=== PATIENT | male | born 1960 | race Caucasian/White ===

== ENCOUNTER 2016-06-21 09:11 | Emergency (ER) | payer BC, OTHER ==
[~2016-06-21] VITALS: Ht 160 cm; Wt 78.0 kg
[~2016-06-21 09:11] MED LIST: AZIT250T94 PO; HYDR-906 PO
[2016-06-21 09:19] VITALS: Ht 160 cm; Wt 78.0 kg
[2016-06-21] MEDS ORDERED: KETOROLAC 30 MG INJ IM STA (11:54)
--- NOTE | 2016-06-21 12:17 | ERD ---
ER Documentation Chief Complaint Date/Time DATE: 06/21/16 TIME: 12:13 Chief Complaint RIGHT SHOULDER/NECK PAIN X 5 DAYS HPI This is a 56-year-old male who presents the emergency department today complaining of right-sided chest pain that goes up towards his neck and is worse with movement of his right shoulder. Patient states that he feels pressure in his right arm. States he has tried Naprosyn with no improvement in pain. 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 Denies any neck pain. Denies any fevers or chills or cough ROS All systems reviewed and are negative except as per history of present illness. Medications Home Meds Active Scripts Naproxen* (Naprosyn*) 500 Mg Tablet, 500 MG PO BID Y for PAIN AND/OR INFLAMMATION, #30 TAB Prov:HEATHER YATES PA-C 06/21/16 Hydrocodone/Acetaminophen (Slaughter 5-325 Tablet) 1 Each Tablet, 1 TAB PO Q6H Y for PAIN, #15 TAB Prov:HEATHER YATES PA-C 06/21/16 Hydrocodone/Acetaminophen (Slaughter 5-325 Tablet) 1 Each Tablet, 1 TAB PO Q6H Y for PAIN, #10 TAB Prov:NESTOR CORREIA PA-C 02/04/16 Azithromycin* (Zithromax*) 250 Mg Tablet, 250 MG PO .ZPACK DIRECTED, #6 TAB TAKE 500 MG (2 TABS) THE FIRST DAY THEN 250 MG (1 TAB) DAYS 2-5 Prov:NESTOR CORREIA PA-C 02/04/16 Allergies Allergies: Coded Allergies: No Known Allergy (Verified Allergy, Mild, NKA NONE, 12/14/08) PMhx/Soc Medical and Surgical Hx: pt denies Medical Hx, pt denies Surgical Hx Hx Alcohol Use: No Hx Substance Use: No Hx Tobacco Use: No Smoking Status: Never smoker Physical Exam Vitals Vital Signs Date Time Temp Pulse Resp B/P Pulse Ox O2 Delivery O2 Flow Rate FiO2 06/21/16 09:19 98.1 75 18 158/82 99 Physical Exam Const: No acute distress Head: Atraumatic Eyes: Normal Conjunctiva ENT: Normal External Ears, Nose and Mouth. Neck: Full range of motion..~ No meningismus. Nontender midline. Mild right-sided paraspinal tenderness Resp: Clear to auscultation bilaterally Cardio: Regular rate and rhythm, no murmurs Abd: Soft, non tender, non distended. Normal bowel sounds Skin: No petechiae or rashes Back: No midline or flank tenderness Ext: No cyanosis, or edema. Right arm pulses 2+. Distal neurovascularly intact. Clavicular pain with raising of right arm. Neur: Awake and alert Psych: Normal Mood and Affect Results 24 hrs Current Medications Medications (Trade) Dose Ordered Sig/Lm Route PRN Reason Start Time Stop Time Status Last Admin Dose Admin Ketorolac Tromethamine (Toradol) 30 mg ONCE STAT IM 06/21/16 11:54 06/21/16 11:56 DC DIAGNOSTIC IMAGING REPORT Patient: SHARRI FOUNTAIN : 1960 Age: 56 Sex: M MR #: [id number] DOS: 06/21/16 0000 Ordering MD: HEATHER YATES PA-C Location: [facility] Room/Bed: PROCEDURE: XR right clavicle. CLINICAL INDICATION: pain TECHNIQUE: AP and AP lordotic views of the right clavicle were performed. COMPARISON: None. FINDINGS: There is normal osseous mineralization and alignment. No fracture or osseous lesion is identified. Mild degenerative changes are seen at the acromioclavicular joint. The soft tissues are unremarkable. IMPRESSION: Mild degenerative changes are seen at the acromioclavicular joint. RPTAT:AAJJ Physician [place] Date Time Electronically viewed and signed by Nico Canales Physician on 06/21/2016 12: 47 MC/ CC: HEATHER YATES PA-C Procedures/MDM This is a 56-year-old male who presents the emergency department today complaining of some right-sided chest pain that goes up towards his right side of his neck and is worse with movement and raising his right arm. I did have Dr. Bhandari see and evaluate the patient and he recommended that given the patient 's location of pain I obtained dedicated clavicle films as well as an EKG EKG read and interpreted by Dr. Bhandari. Rate [address] elevation. No QT prolongation. Normal sinus rhythm. Low suspicion for acute CA, PE, pericarditis Clavicle films show mild degenerative changes seen at the AC joint. Soft tissues are unremarkable. There is no acute fracture dislocation. Patient appear to have increased pain with movement and his symptoms at this time appear musculoskeletal in nature and his degenerative changes in his AC joint may be the cause of his pain.. Although patient had no specific trauma he does work installing air-conditioning. I do not feel that the patient requires a chest x-ray at this time. He is afebrile and otherwise well- appearing. His oxygen saturation on 9%. Low suspicion for pneumonia, PE, abscess, pleural effusion, pneumothorax Patient was given Toradol here in the emergency department. He will be given a prescription for Naprosyn, Slaughter for home. Did offer to give the patient a sling however he is declined. He also declined a work note. At this time the patient is stable for discharge and outpatient management. Patient should follow up with their PCP in the next 1-2 days. They may return to the emergency department sooner for any persistent or worsening of symptoms. Patient understood and agreed with the plan. Departure Diagnosis: Primary Impression: Shoulder pain Laterality: right Chronicity: acute Qualified Code: M25.511 - Acute pain of right shoulder Condition: HEATHER Reyna PA-C Jun 21, 2016 12:17
--- NOTE | 2016-06-21 12:47 | RADRPT ---
PROCEDURE: XR right clavicle. CLINICAL INDICATION: pain TECHNIQUE: AP and AP lordotic views of the right clavicle were performed. COMPARISON: None. FINDINGS: There is normal osseous mineralization and alignment. No fracture or osseous lesion is identified. Mild degenerative changes are seen at the acromioclavicular joint. The soft tissues are unremarkable. IMPRESSION: Mild degenerative changes are seen at the acromioclavicular joint. RPTAT:AAJJ Physician [place] Date Time Electronically viewed and signed by Nico Canales Physician on 06/21/2016 12:47 /
[2016-06-21] MEDS ORDERED: HYDR-906 PO (12:59)
[2016-06-21] MEDS ORDERED: NAPR-260 PO (12:59)
[2016-06-21 13:19] VITALS: BP 132/83; PULSE 64; RESP 16
== END 2016-06-21 13:25 | disposition home or self-care (01) ==
LOC: FTE 09:11
DX: M25.511 Pain in right shoulder (principal); R07.9 Chest pain, unspecified
CPT/HCPCS: 73000; 93005; 96372; J1885; Z7502

== ENCOUNTER 2016-10-10 20:30 | Emergency (ER) | payer BC ==
[~2016-10-10] VITALS: Ht 170.2 cm; Wt 94.5 kg
[~2016-10-10 20:30] MED LIST changes: +NAPR-260 PO
[2016-10-10 20:32] VITALS: Ht 170.2 cm; Wt 94.5 kg
[2016-10-10] MEDS ORDERED: KETOROLAC 30 MG INJ IM STA (21:28)
--- NOTE | 2016-10-10 22:41 | RADRPT ---
PROCEDURE: X-ray left knee. CLINICAL INDICATION: Left knee pain and swelling for 2 weeks. Reference marker is directed towards the medial proximal metaphysis of the left tibia. TECHNIQUE: 3 views left knee COMPARISON: None FINDINGS: No acute fracture or dislocation. Mild joint effusion is likely present. Soft tissues are otherwise unremarkable. IMPRESSION: No acute fracture. RPTAT: [facility] Physician [place] Date Time Electronically viewed and signed by Placido Sabillon Physician on 10/10/2016 22:40 RS/
[2016-10-10] MEDS ORDERED: IBUP400T22 PO (23:03)
[2016-10-10] MEDS ORDERED: HYDR-906 PO (23:03)
--- NOTE | 2016-10-11 00:31 | ERD ---
ER Documentation Chief Complaint Date/Time DATE: 10/11/16 TIME: 00:26 Chief Complaint left knee pain x 2 weeks, denies injury HPI This is a 56-year-old male presenting to emergency department with left knee pain 2 weeks. 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 Patient states in the last 2 weeks he has had increased left knee pain to medial and lateral aspect. Patient has had decreased range of motion due to pain and difficulty ambulating. No erythema, warmth or drainage. No laceration or bruising. No fevers or chills. No recent injury or trauma to area. Patient has been taking [place] medication without relief of symptoms. Denies numbness, tingling or loss of sensation. ROS All systems reviewed and are negative except as per history of present illness. Medications Home Meds Active Scripts Hydrocodone/Acetaminophen (Sullivan 5-325 Tablet) 1 Each Tablet, 1 TAB PO Q6H Y for PAIN, #7 TAB Prov:GORGE SKINNER NP 10/10/16 Ibuprofen* (Motrin*) 400 Mg Tab, 400 MG PO Q6, #20 TAB Prov:GORGE SKINNER NP 10/10/16 Naproxen* (Naprosyn*) 500 Mg Tablet, 500 MG PO BID Y for PAIN AND/OR INFLAMMATION, #30 TAB Prov:HEATHER YATES PA-C 06/21/16 Hydrocodone/Acetaminophen (Sullivan 5-325 Tablet) 1 Each Tablet, 1 TAB PO Q6H Y for PAIN, #15 TAB Prov:HEATHER YATES PA-C 06/21/16 Hydrocodone/Acetaminophen (Sullivan 5-325 Tablet) 1 Each Tablet, 1 TAB PO Q6H Y for PAIN, #10 TAB Prov:NESTOR CORREIA PA-C 02/04/16 Azithromycin* (Zithromax*) 250 Mg Tablet, 250 MG PO .ZPACK DIRECTED, #6 TAB TAKE 500 MG (2 TABS) THE FIRST DAY THEN 250 MG (1 TAB) DAYS 2-5 Prov:NESTOR CORREIA PA-C 02/04/16 Allergies Allergies: Coded Allergies: No Known Allergy (Verified Allergy, Mild, NKA NONE, 12/14/08) PMhx/Soc Medical and Surgical Hx: pt denies Medical Hx, pt denies Surgical Hx Hx Alcohol Use: Yes (2-3beer/day) Hx Substance Use: No Hx Tobacco Use: No Smoking Status: Never smoker Physical Exam Vitals Vital Signs Date Time Temp Pulse Resp B/P Pulse Ox O2 Delivery O2 Flow Rate FiO2 10/10/16 20:32 98.5 76 20 152/76 98 Physical Exam Const: No acute distress, alert Head: Atraumatic Eyes: Normal Conjunctiva ENT: Normal External Ears, Nose and Mouth. Neck: Full range of motion..~ No meningismus. Resp: Clear to auscultation bilaterally Cardio: Regular rate and rhythm, no murmurs Abd: Soft, non tender, non distended. Normal bowel sounds Skin: No petechiae or rashes Back: No midline or flank tenderness Ext: Mild swelling to left posterior knee. Tenderness to palpation of lateral and medial aspect of left knee. Limited range of motion to left knee. Neur: Awake and alert Psych: Normal Mood and Affect Results 24 hrs Current Medications Medications (Trade) Dose Ordered Sig/Lm Route PRN Reason Start Time Stop Time Status Last Admin Dose Admin Ketorolac Tromethamine (Toradol) 30 mg ONCE STAT IM 10/10/16 21:28 10/10/16 21:30 DC 10/10/16 22:52 Procedures/MDM [place] [id number] Radiology Main Line: [phone] DIAGNOSTIC IMAGING REPORT Patient: SHARRI FOUNTAIN : 1960 Age: 56 Sex: M MR #: [id number] DOS: 10/10/162127 Ordering MD: GORGE SKINNER NP Location: [facility] Room/Bed: PROCEDURE: X-ray left knee. CLINICAL INDICATION: Left knee pain and swelling for 2 weeks. Reference marker is directed towards the medial proximal metaphysis of the left tibia. TECHNIQUE: 3 views left knee COMPARISON: None FINDINGS: No acute fracture or dislocation. Mild joint effusion is likely present. Soft tissues are otherwise unremarkable. IMPRESSION: No acute fracture. MDM: This is a 56-year-old male presenting to emergency department with left knee pain 2 weeks. No injury or trauma to area. 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 X-ray left knee reviewed by radiologist as no acute fracture or dislocation. Mild joint effusion is likely present. Soft tissues are otherwise unremarkable. Patient given Toradol 30 mg IM while in the ED. Reji wrap applied and patient remains neurovascularly intact. Patient states pain is now tolerable. Low suspicion for acute dislocation or fracture. Patient likely has ligament injury. Patient is appropriate for outpatient management will be given prescription for ibuprofen and Sullivan. Instructed patient to follow-up with primary care provider in the next 2-3 days for reassessment. Discussed with patient and patient's that he may need MRI or additional imaging. Return to ED for any high fever, chest pain, difficulty breathing, shortness breath, wheezing, vomiting, diarrhea, abdominal pain or any new or worsening symptoms. Patient and patient's verbalize understanding. All questions answered at discharge. Departure Diagnosis: Primary Impression: Knee pain Laterality: left Chronicity: acute Qualified Code: M25.562 - Acute pain of left knee Condition: Stable Patient Instructions: Knee Pain, Uncertain Cause Referrals: FRANCISCO EVANS (PCP) JAZMINE BARNHART MD (Family) Additional Instructions: Llame al doctor MAANA y bienvenido corby ERI PARA DENTRO DE 2-3 ROSALES.Dgale a la secretaria que nosotros le instruimos hacer esta eri.Avise o llame si car condicin se empeora antes de la eri. Regresa aqui si peor o no mejor. Regresar a ED por fiebre cristina, dolor en el pecho, dificultad para respirar, respiracin entrecortada, sibilancias, vmitos, diarrea, dolor abdominal o cualquier sntoma nuevo o que empeora. GORGE SKINNER NP Oct 11, 2016 00:31
== END 2016-10-10 23:40 | disposition home or self-care (01) ==
LOC: FTE 20:30
DX: M25.562 Pain in left knee (principal)
CPT/HCPCS: 73562; 96372; J1885; Z7502

== ENCOUNTER 2017-12-04 13:36 | Emergency (ER) | END 2017-12-04 17:59 | disposition home or self-care (01) ==

== ENCOUNTER 2017-12-08 11:11 | Emergency (ER) | END 2017-12-08 12:52 | disposition home or self-care (01) ==

== ENCOUNTER 2017-12-24 09:34 | Emergency (ER) | END 2017-12-24 23:25 | disposition short-term general hospital (02) ==